=== PATIENT | female | born 1985 | race Caucasian/White ===

== ENCOUNTER 2023-08-25 16:43 | Emergency (ER) | payer OTHER, SELFPAY ==
[2023-08-25 16:44] VITALS: BMI 21.1
[2023-08-25 16:47] VITALS: BP 126/82
[2023-08-25 17:00] VITALS: BP 106/63
[2023-08-25 17:07] LABS: % Basophils 0.5 % (0-2); % Eosinophils 0.6 % (0-6); % Immature Granulocytes 0.2 % (0-0.5); % Monocytes 9.3 % (1.7-9.3); % Neutrophils 60.4 % (42.2-75.2); Absolute Lymphocytes 1.9 10^3/uL (1.2-3.4); Absolute Monocytes 0.6 10^3/uL (0.1-0.6); Hemoglobin 11.2 g/dL (12.0-16.0); Mean Corp Hgb Conc. 33.9 g/dL (33.0-37.0); Mean Corpuscular Hgb 28.8 pg (27.0-31.0); Mean Corpuscular Volume 84.8 fL (81.0-99.0); Mean Platelet Volume 8.4 fL (7.4-10.4); Nucleated Red Blood Cells % 0 %; Platelet Count 308 10^3/uL (130-400); Red Blood Cell Count 3.89 10^6/uL (4.20-5.40); Red Cell Dist. Width 13.8 % (11.5-14.5); White Blood Cell Count 6.6 10^3/uL (4.8-10.8)
[2023-08-25 17:17] LABS: HCG, Serum Qualitative Screen Negative
[2023-08-25 17:20] LABS: ALT (SGPT) 20 U/L (0-35); AST (SGOT) 29 U/L (14-36); Albumin 3.7 g/dl (3.5-5.0); Alkaline Phosphatase 75 U/L (38-126); Blood Urea Nitrogen 16 mg/dl (7-17); Calcium 8.5 mg/dl (8.4-10.2); Carbon Dioxide 22 mmol/L (22-30); Chloride 106 mmol/L (98-107); Estimated Creatinine Clearance 90 ml/min; Glucose 91 mg/dl (70-99); Potassium 3.9 mmol/L (3.5-5.1); Sodium 133 mmol/L (135-145); Total Bilirubin 0.5 mg/dl (0.2-1.3); Total Protein 6.9 g/dl (6.3-8.2); eGFR > 60.00
[2023-08-25 17:31] LABS: Troponin I < 0.012 ng/ml
[2023-08-25 18:00] VITALS: BP 114/74
--- NOTE | 2023-08-25 18:35 | ED.GENMED ---
History of Present Illness
<DO Jo Ann Rosas Filed: 09/02/23 09:36>
General
Chief Complaint: Chest Pain
Source: patient
Time Seen by Provider: 08/25/23 18:24
Travel History
Have you had any contact with someone who has COVID-19?: No
Do you have any symptoms of coronavirus? Fever > 100 degrees, chills, cough, shortness of breath, sore throat, loss of taste or smell, muscle aches, or headache?: No
History of Present Illness
History of Present Illness:
37-year-old female presents to the emergency room complaining of chest pain. Patient brought to the emergency room for [facility]. She states she developed the pain a few hours prior to arrival. She denies it is a dull
pain. She was given 324 mg of aspirin by medics to pick up attendant at the present. Patient admits to marijuana use. She denies any methamphetamine or cocaine use. She denies any trauma. Pain is located in the anterior chest. Does not radiate. Nothing
seems to make it better or worse.
Phy Exam
<DO Jo Ann Rosas Last Filed: 09/02/23 09:36>
Physical Exam
Physical Exam:
General: Awake, Alert, Oriented X3. No acute distress.
Vitals: unremarkable
Head: Atraumatic
Eyes: Pupils equal, EOMI
Throat: Airway intact, no exudates
Neck: Trachea midline
Lungs: Clear and equal b/l
Heart: Regular rate, no murmurs
Abd: Soft, Nontender, No pulsatile mass
Neuro: Nonfocal
Skin: Warm, dry, no rash
Extremities: pulses equal b/l, no edema
Scores
<DO Jo Ann Rosas Last Filed: 09/02/23 09:36>
Heart Score for Chest Pain Patients
Heart Score for Chest Pain Patients: 0
Heart Score Risk: 2.5% MACE over next 6 weeks
elizabeth;Minh Cox MD - Last Filed: 08/26/23 02:04>
Heart Score for Chest Pain Patients
STEMI patient?: No
History: Slightly or Non-Suspicious
ECG: Normal
Age: </= 45 years
Risk Factors: No Risk Factors
Troponin: </= Normal Limit
Heart Score for Chest Pain Patients: 0
Heart Score Risk: 2.5% MACE over next 6 weeks
Course
elizabeth;Jose Loyola DO - Last Filed: 09/02/23 09:36>
Orders/Labs/Results
Orders:
Orders
08/25/23 16:45
Electrocardiogram (*1) Urgent
Reason for Study: Chest Pain
EKG- Treatment ONCE
Test Result ONCE
08/25/23 16:57
Complete Blood Count/With Diff Urgent
Comprehensive Metabolic Panel Urgent
HCG, Serum Qualitative Screen Urgent
Troponin I Urgent
08/25/23 18:30
CR Chest - 2 Views Urgent
Comment:
Reason For Exam: chest pain
08/25/23 20:43
Troponin I Urgent
Abnormal Lab Results
08/25/23
16:57
RBC 3.89 L 10^6/uL
(4.20-5.40)
Hgb 11.2 L g/dL
(12.0-16.0)
Hct 33.0 L %
(37.0-47.0)
Sodium 133 L mmol/L
(135-145)
Creatinine 0.5 L mg/dL
(0.6-1.0)
08/25/23 16:57
08/25/23 16:57
Vital Signs
Initial and Last Documented VS:
Initial Vital Signs
Temp Pulse Resp BP Pulse Ox
97.5 F 72 12 126/82 100
08/25/23 16:47 08/25/23 16:47 08/25/23 16:47 08/25/23 16:47 08/25/23 16:47
Last Documented Vital Signs
Temp Pulse Resp BP Pulse Ox
97.5 F 80 14 115/72 99
08/25/23 16:47 08/25/23 21:50 08/25/23 21:50 08/25/23 21:50 08/25/23 21:50
<Minh Cox MD - Last Filed: 08/26/23 02:04>
Orders/Labs/Results
Orders:
Orders
08/25/23 16:45
Electrocardiogram (*1) Urgent
Reason for Study: Chest Pain
EKG- Treatment ONCE
Test Result ONCE
08/25/23 16:57
Complete Blood Count/With Diff Urgent
Comprehensive Metabolic Panel Urgent
HCG, Serum Qualitative Screen Urgent
Troponin I Urgent
08/25/23 18:30
CR Chest - 2 Views Urgent
Comment:
Reason For Exam: chest pain
08/25/23 20:43
Troponin I Urgent
Abnormal Lab Results
08/25/23
16:57
RBC 3.89 L 10^6/uL
(4.20-5.40)
Hgb 11.2 L g/dL
(12.0-16.0)
Hct 33.0 L %
(37.0-47.0)
Sodium 133 L mmol/L
(135-145)
Creatinine 0.5 L mg/dL
(0.6-1.0)
08/25/23 16:57
08/25/23 16:57
Vital Signs
Initial and Last Documented VS:
Initial Vital Signs
Temp Pulse Resp BP Pulse Ox
97.5 F 72 12 126/82 100
08/25/23 16:47 08/25/23 16:47 08/25/23 16:47 08/25/23 16:47 08/25/23 16:47
Last Documented Vital Signs
Temp Pulse Resp BP Pulse Ox
97.5 F 80 14 115/72 99
08/25/23 16:47 08/25/23 21:50 08/25/23 21:50 08/25/23 21:50 08/25/23 21:50
<Jose Loyola DO - Last Filed: 09/02/23 09:36>
*Radiology
Radiology exam reviewed: radiology read reviewed
*Pulse Oximetry
Patient hypoxic: no
*EKG
Interpreted by ED Provider?: Yes
Interpretation: normal
Heart Rate: 70
Rate: normal
Rhythm: sinus
[place]: normal axis
Interval: normal interval
QRS Pattern: normal QRS
Ischemia: no ischemia
*T[employer]ical De[employer] Plans Officer Interpretation
Rate: normal
Interpretation: normal
Rhythm: sinus
<Minh Cox MD - Last Filed: 08/26/23 02:04>
*Critical Care Note
Total Time (30-74mins, 75-104mins- exclusive of procedures): Not Applicable
<Minh Cox MD - Last Filed: 08/26/23 02:04>
Update Note
Update Note:
Per signout, repeat troponin negative. Pt remains hemodynamiocally stable without acute distress. Pt will be discharged back to [facility].
ED Attending Note
<Jose Loyola DO - Last Filed: 09/02/23 09:36>
-
Portions of this chart may have been created with voice recognition software.� Occasional wrong word or��sound alike� substitutions may have occurred due to the inherent limitations of voice recognition software.
Discharge Plan
Departure
Patient Disposition: [facility]
Date of Disposition: 08/25/23
Time of Disposition: 21:33
Patient with high blood pressure during this ER visit?: Yes
Discharge Problem:
Chest pain
Instructions: Chest Pain That Is Not Caused by the Heart (DC)
Referrals:
[facility],Facility [Family Provider] -
Activity Restrictions/Additional Instructions:
As discussed, you are being discharged back to [facility]. Please return to ED with worsening symptoms.
Interventions
Interventions:
*Risk Screen - Suicide Last Done: 08/25/23 17:33
*General Assessment Last Done: 08/25/23 17:33
*Neglect/Abuse Screening Last Done: 08/25/23 17:33
ED- Fall Risk Assessment Last Done: 08/25/23 17:33
*ED COVID-19 Vaccine History Last Done: 08/25/23 21:50
*Nursing Disposition Last Done: 08/25/23 21:50
ED- Cardiac Assessment Last Done: 08/25/23 17:33
Discharge Date and Time
Discharge Date/Time: 08/25/23 21:53
[2023-08-25 21:12] LABS: Troponin I < 0.012 ng/ml
[2023-08-25 21:50] VITALS: BP 115/72
== END 2023-08-25 21:53 ==
LOC: EMR 16:43
PROVIDERS: EMERGENCY PHYSICIAN Emergency Medicine
DX: R07.89 Other chest pain (principal); R03.0 Elevated blood-pressure reading, without diagnosis of hypertension
CPT/HCPCS: 99285; 71046; 80053; 84484; 84703; 85025; 93005